=== PATIENT | male | born 1945 | race Caucasian/White ===

== ENCOUNTER 2018-09-18 23:33 | Emergency (ER) | payer MEDICARE, OTHER ==
[~2018-09-18] VITALS: Ht 162.6 cm; Wt 95.3 kg
[2018-09-19 00:38] VITALS: BP 151/89
== END 2018-09-19 00:39 | disposition home or self-care (01) ==
LOC: FSED 23:33
DX: R33.9 Retention of urine, unspecified (principal); N40.1 Benign prostatic hyperplasia with lower urinary tract symptoms; I10 Essential (primary) hypertension
CPT/HCPCS: 51700; 81003; 99283

== ENCOUNTER 2019-04-14 20:30 | Emergency (ER) | payer MEDICARE, OTHER ==
[~2019-04-14] VITALS: Ht 162.6 cm; Wt 99.8 kg
--- OUTSIDE RECORDS SUMMARY | 2019-04-14 20:33 | XMS REPORT | Summary of Care ---
Author Author [facility] Organization [facility] Address Unknown Phone Unavailable Encounter MIGNON Lazar(FIN) [id number] Date(s): 09/24/18 - 09/24/18 [facility] [address] [address] [place] [id number]- Discharge Disposition: Home or Self Care Vital Signs No data available for this section Problem List Condition Effective Dates Status Health Status Informant Benign prostatic Resolved hyperplasia with lower urinary tract symptoms(Confirmed) Diaphragmatic Resolved hernia(Confirmed) Hypercholesterolemia Active (Confirmed) High Resolved cholesterol(Confirme d) Hypertension(Confirm Active ed) High blood Resolved pressure(Confirmed) Prostate Resolved cancer(Confirmed) Mononeuritis Resolved arm(Confirmed) Morbid Active obesity(Confirmed) Nocturia(Confirmed) Resolved Elevated Resolved PSA(Confirmed) Hernia, inguinal, Active right(Confirmed) Allergies, Adverse Reactions, Alerts No Known Medication Allergies Medications No data available for this section Results No data available for this section Immunizations No data available for this section Procedures Procedure Date Related Diagnosis Body Site Status Complex uroflowmetry (eg, calibrated 09/24/18 Completed electronic equipment) Measurement of post-voiding residual urine 09/24/18 Completed and/or bladder capacity by ultrasound, non-imaging Needle biopsy of prostate 10/15/17 Completed Open repair of inguinal hernia 06/27/17 Completed Complex uroflowmetry 09/15/12 Completed Colonoscopy Completed Open repair of inguinal hernia x2 Completed Tonsillectomy Completed Social History Social History Type Response Substance Abuse Use: None. Alcohol Past, Type Liquor. Frequency: 3-5 times per week. Smoking Status Former smoker; Lives with someone who smokes; Exposure to Tobacco Smoke was a smoker; Cigarette Smoking Last 365 Days No; Reg Smoking Cessation Counseling No; Stopped at age: 32; entered on: 10/07/18 Assessment and Plan No data available for this section
--- OUTSIDE RECORDS SUMMARY | 2019-04-14 20:33 | XMS REPORT | Continuity of Care Document ---
Author Author [facility] Interface Address Unknown Phone Unavailable Problems Problem Status Onset Date Classification Date Reported Comments Source UNK Active 06/23/2017 [facility] R10.31 WITH ORAL* Active 06/10/2017 [facility] Benign prostatic hyperplasia with lower urinary tract symptoms Resolved Problem 04/14/2019 [facility] Diaphragmatic hernia Resolved Problem 04/14/2019 [facility] Hypercholesterolemia Active Problem 04/14/2019 [facility] High cholesterol Resolved Problem 04/14/2019 [facility] Hypertension Active Problem 04/14/2019 [facility] High blood pressure Resolved Problem 04/14/2019 [facility] Prostate cancer Resolved Problem 04/14/2019 [facility] Mononeuritis arm Resolved Problem 04/14/2019 [facility] Morbid obesity Active Problem 04/14/2019 [facility] Nocturia Resolved Problem 04/14/2019 [facility] Elevated PSA Resolved Problem 04/14/2019 [facility] Hernia, inguinal, right Active Problem 04/14/2019 [facility] RIGHT LOWER QUADRANT PAIN Active [facility] UNIL INGUINAL HERNIA, W/O OBST OR GANGR, Active [facility] Medications Medication Details Route Status Patient Instructions Ordering Provider Order Date Source Oxycodone Hydrochloride 5 MG Oral Tablet 10 mg, Route: PO, Drug form: TAB, ONCE, Dosing Weight 96.364, kg, PRN Pain Score 7-10, Start date: 06/27/17 9:53:00 CDT Inactive 06/27/2017 [facility] Ondansetron 4 mg, Route: IVP, ONCE, Dosing Weight 96.364, kg, PRN Nausea & Vomiting, Start date: 06/27/17 9:11:00 CDT Inactive 06/27/2017 [facility] Flumazenil 0.2 mg, Route: IVP, PRN, Dosing Weight 96.364, kg, PRN Benzodiazepine Reversal, Initial dose, Start date: 06/27/17 9:11:00 CDT, Duration: 30 day, Stop date: 07/27/17 9:10:00 CDT Inactive 06/27/2017 [facility] Hydromorphone 0.5 mg, Route: IVP, Q5Min, Dosing Weight 96.364, kg, PRN Pain Score 7-10, Start date: 06/27/17 9:11:00 CDT, Duration: 4 doses or times, Stop date: Limited # of times Inactive 06/27/2017 [facility] Naloxone 0.4 mg, Route: IVP, Q2MIN, Dosing Weight 96.364, kg, PRN Narcotic Reversal, Start date: 06/27/17 9:11:00 CDT, Duration: 8 doses or times, Stop date: Limited # of times Inactive 06/27/2017 [facility] Morphine 2 mg, Route: IVP, Q5Min, Dosing Weight 96.364, kg, PRN Pain Score 4-6, Start date: 06/27/17 9:11:00 CDT, Duration: 5 doses or times, Stop date: Limited # of times Inactive 06/27/2017 [facility] Hydralazine 10 mg, Route: IVP, Q20Min, Dosing Weight 96.364, kg, PRN Elevated BP, Start date: 06/27/17 9:11:00 CDT, Duration: 2 doses or times, Stop date: Limited # of times Inactive 06/27/2017 [facility] Labetalol 10 mg, Route: IVP, Q5Min, Dosing Weight 96.364, kg, PRN Elevated BP, Start date: 06/27/17 9:11:00 CDT, Duration: 5 doses or times, Stop date: Limited # of times Inactive 06/27/2017 [facility] tramadol hydrochloride 50 MG Oral Tablet [Ultram] 50 mg=1 tab, PO, Q4H, PRN for pain, X 5 day, # 20 tab, 0 Refill(s) Active 06/27/2017 [facility] ondansetron (ANES) Route: IV, Drug form: INJ, ONCE, Stop date: 06/27/17 9:03:00 CDT Inactive 06/27/2017 [facility] ePHEDrine (ANES) Route: IV, Drug form: INJ, ONCE, Stop date: 06/27/17 8:44:00 CDT Inactive 06/27/2017 [facility] famotidine (ANES) Route: IV, Drug form: INJ, ONCE, Stop date: 06/27/17 8:44:00 CDT Inactive 06/27/2017 [facility] dexamethasone (ANES) Route: IV, Drug form: INJ, ONCE, Stop date: 06/27/17 8:44:00 CDT Inactive 06/27/2017 [facility] fentaNYL (ANES) Route: IV, Drug form: INJ, ONCE, Stop date: 06/27/17 8:39:00 CDT Inactive 06/27/2017 [facility] lidocaine (ANES) Route: IV, Drug form: INJ, ONCE, Stop date: 06/27/17 8:39:00 CDT Inactive 06/27/2017 [facility] propofol (ANES) Route: IV, Drug form: INJ, ONCE, Stop date: 06/27/17 8:39:00 CDT Inactive 06/27/2017 [facility] acetaminophen (ANES) (ANES) Route: IV, Drug form: INJ, Start date: 06/27/17 8:24:00 CDT, Stop date: 06/27/17 9:24:00 CDT Inactive 06/27/2017 [facility] ceFAZolin (ANES) (ANES) Route: IV, Drug form: INJ, Start date: 06/27/17 7:54:00 CDT, Stop date: 06/27/17 8:54:00 CDT Inactive 06/27/2017 [facility] LR 1000 mL INJ (ANES) Route: IV, Total Volume: 1,000, Start date: 06/27/17 7:43:00 CDT, Stop date: 06/27/17 8:43:00 CDT Inactive 06/27/2017 [facility] Calcium Chloride 0.0014 MEQ/ML / Potassium Chloride 0.004 MEQ/ML / Sodium Chloride 0.103 MEQ/ML / Sodium Lactate 0.028 MEQ/ML Injectable Solution 1,000 mL, Rate: 25 ml/hr, Infuse over: 40 hr, Route: IV, Dosing Weight 96.364 kg, Total Volume: 1,000, Start date: 06/27/17 6:57:00 CDT, Duration: 30 day, Stop date: 07/27/17 6:56:00 CDT Inactive 06/27/2017 [facility] Cefazolin 2 gm, 100 mL, Route: IVPB, Drug form: INJ, ONCE, Dosing Weight 97.045, kg, Start date: 06/24/17 10:40:00 CDT, Duration: 1 doses or times, Stop date: 06/24/17 10:40:00 CDT, Surgical Prophylaxis Only; For patients Notes: Same as: Ancef Inactive 06/24/2017 [facility] Omnipaque 300 100 mL, Route: IV, Drug Form: SOLN, ONCE, Start date: 06/13/17 11:47:00 CDT, Stop date: 06/13/17 11:47:00 CDTNotes: (Same as:Omnipaque 300). WASTE: F/P - Black; E - Municipal Trash Bin Inactive 06/13/2017 [facility] Allergies, Adverse Reactions, Alerts Substance Category Reaction Severity Reaction type Status Date Reported Comments Source No Known Medication Allergies Assertion Drug allergy Medical Group Immunizations Immunization Date Given Site Status Last Updated Comments Source Results Order Name Results Value Reference Range Date Interpretation Comments Source HEMATOLOGY Hgb 14.6 g/dL 14.0 - 18.0 06/24/2017 [facility] HEMATOLOGY Hct 43.4 % 42.0 - 54.0 06/24/2017 [facility] CHEM PANEL eGFR 68 mL/min/1.73m2 06/13/2017 Result Comment: The eGFR is calculated using the CKD-EPI formula. In most young, healthy individuals the eGFR will be >90 mL/min/1.73m2. The eGFR declines with age. An eGFR of 60-89 may be normal in some populations, particularly the elderly, for whom the CKD-EPI formula has not been extensively validated. Use of the eGFR is not recommended in the following populations: Individuals with unstable creatinine concentrations, including patients and those with serious co-morbid conditions. Patients with extremes in muscle mass or diet. The data above are obtained from the National Kidney Disease Education Program (NKDEP) which additionally recommends that when the eGFR is used in patients with extremes of body mass index for purposes of drug dosing, the eGFR should be multiplied by the estimated BMI. [facility] CHEM PANEL POC Creatinine 1.1 mg/dL 0.5 - 1.4 06/13/2017 [facility] Pelvis w IV contrast CT Pelvis w IV contrast CT EXAM: CT pelvis HISTORY: Right lower quadrant pain COMPARISON: None TECHNIQUE: Axial images with sagittal and coronal reformats. IV and oral contrast. DLP 398 FINDINGS: 1. Inguinal herniorrhaphy with small fat-containing inguinal hernia on the right extending into the scrotum. Vasectomy clips. 2. Moderate enlargement of the prostate. The bladder is unremarkable. 3. Normal appendix. Several small retroperitoneal lymph nodes are nonspecific. Atherosclerosis aorta. No free fluid. 4. Degenerative disc disease L4-L5 and L5-S1. Pars defects L5 with grade 1 spondylolisthesis. SL 13 06/13/2017 - - Read by: Ozzie Boyd MD Dictated Date/time: 06/13/17 15:34 Electronically Signed by: Ozzie Boyd MD 06/13/17 15:47 FINAL REPORT [facility] Vital Signs Vital Sign Value Date Comments Source Systolic (mm Hg) 110 06/27/2017 [facility] Diastolic (mm Hg) 98 06/27/2017 [facility] Systolic (mm Hg) 133 06/27/2017 [facility] Diastolic (mm Hg) 81 06/27/2017 [facility] Systolic (mm Hg) 135 06/27/2017 [facility] Diastolic (mm Hg) 79 06/27/2017 [facility] Respitory Rate 18 06/27/2017 [facility] Respitory Rate 13 06/27/2017 [facility] Respitory Rate 14 06/27/2017 [facility] Heart Rate 79 06/24/2017 [facility] Temperature Oral (F) 97.5 F 06/24/2017 [facility] Weight 96.364 06/24/2017 [facility] BMI Calculated 35.35 06/24/2017 [facility] Height 165.1 cm 06/24/2017 [facility] Encounters Location Location Details Encounter Type Encounter Number Reason For Visit Attending Provider ADM Date DC Date Status Source Outpatient [id number] JUAN HERNÁNDEZ 06/10/2017 [facility] Outpatient [id number] Juan Hernández 06/13/2017 06/14/2017 [facility] Outpatient [id number] JUAN HERNÁNDEZ 06/27/2017 [facility] Day Surgery [id number] Juan Hernández 06/27/2017 06/27/2017 [facility] Outpatient [id number] JUAN HERNÁNDEZ 07/15/2017 [facility] Outpatient [id number] NURSE VISIT 09/24/2018 [facility] [place] Outpatient [id number] 09/24/2018 09/25/2018 [facility] Out[facility] [id number] PABLO ROSAS 10/07/2018 Active [facility] Outpatient [id number] PABLO ROSAS 12/23/2018 Active [facility] Procedures Procedure Code Date Perfomer Comments Source Measurement of post-voiding residual urine and/or bladder capacity by ultrasound, non-imaging 59215 09/24/2018 [facility] uroflowmetry (eg, calibrated electronic equipment) 58516 09/24/2018 [facility] Needle biopsy of prostate [id number] 10/15/2017 [facility] Repair initial inguinal hernia, age 5 years or older; reducible [id number] 06/27/2017 [facility] Open repair of inguinal hernia [id number] 06/27/2017 [facility] uroflowmetry [id number] 09/15/2012 [facility] Open repair of inguinal hernia x2 [id number] [facility] Colonoscopy [id number] [facility] Open repair of inguinal hernia x2 [id number] [facility] Tonsillectomy [id number] [facility] Colonoscopy [id number] [facility] Tonsillectomy [id number] [facility]
--- OUTSIDE RECORDS SUMMARY | 2019-04-14 20:33 | XMS REPORT | Summary of Care ---
Author Author [facility] Organization [facility] Address Unknown Phone Unavailable Encounter MIGNON Lazar(RITESH) [id number] Date(s): 06/27/17 - 06/27/17 [facility] [address] [place] [address]- Discharge Disposition: Home or Self Care Attending Physician: Juan Hernández MD Referring Physician: Juan Hernández MD Vital Signs 1 2 3 Most recent to oldest [Reference Range]: 165.1 cm (06/24/17 10:40 AM) Height 97.5 DegF (06/24/17 10:42 AM) Temperature Oral [96.4-99.1 DegF] 110/98 mmHg (06/27/17 10:39 AM) 133/81 mmHg (06/27/17 10:00 AM) 135/79 mmHg (06/27/17 9:45 AM) Blood Pressure [90-140/60-90 mmHg] 18 BRMIN (06/27/17 9:45 AM) 13 BRMIN *LOW* (06/27/17 9:30 AM) 14 BRMIN (06/27/17 9:15 AM) Respiratory Rate [14-20 BRMIN] 79 bpm (06/24/17 10:42 AM) Peripheral Pulse Rate [60-100 bpm] 96.364 kg (06/24/17 10:40 AM) Weight 35.35 m2 (06/24/17 10:40 AM) Body Mass Index Problem List Condition Effective Dates Status Health Status Informant Hypercholesterolemia Active (Confirmed) High Resolved cholesterol(Confirme d) Hypertension(Confirm Active ed) High blood Resolved pressure(Confirmed) Morbid Active obesity(Confirmed) Hernia, inguinal, Active right(Confirmed) Allergies, Adverse Reactions, Alerts Substance Reaction Severity Status NKDA Active Medications acetaminophen (ANES) (ANES) Route: IV, Drug form: INJ, Start date: 06/27/17 8:24:00 CDT, Stop date: 06/27/17 9:24:00 CDT Start Date: 06/27/17 Stop Date: 06/27/17 Status: Completed ANES flumazenil 0.2 mg, Route: IVP, PRN, Dosing Weight 96.364, kg, PRN Benzodiazepine Reversal, Initial dose, Start date: 06/27/17 9:11:00 CDT, Duration: 30 day, Stop date: 9:10:00 CDT Start Date: 06/27/17 Stop Date: 06/27/17 Status: Discontinued ANES hydrALAZINE 10 mg, Route: IVP, Q20Min, Dosing Weight 96.364, kg, PRN Elevated BP, Start date : 06/27/17 9:11:00 CDT, Duration: 2 doses or times, Stop date: Limited # of time s Start Date: 06/27/17 Stop Date: 06/27/17 Status: Discontinued ANES HYDROmorphone 0.5 mg, Route: IVP, Q5Min, Dosing Weight 96.364, kg, PRN Pain Score 7-10, Start date: 06/27/17 9:11:00 CDT, Duration: 4 doses or times, Stop date: Limited # of times Start Date: 06/27/17 Stop Date: 06/27/17 Status: Discontinued ANES labetalol 10 mg, Route: IVP, Q5Min, Dosing Weight 96.364, kg, PRN Elevated BP, Start date: 06/27/17 9:11:00 CDT, Duration: 5 doses or times, Stop date: Limited # of times Start Date: 06/27/17 Stop Date: 06/27/17 Status: Discontinued ANES morphine Sulfate 2 mg, Route: IVP, Q5Min, Dosing Weight 96.364, kg, PRN Pain Score 4-6, Start danilo e: 06/27/17 9:11:00 CDT, Duration: 5 doses or times, Stop date: Limited # of chen es Start Date: 06/27/17 Stop Date: 06/27/17 Status: Discontinued ANES naloxone 0.4 mg, Route: IVP, Q2MIN, Dosing Weight 96.364, kg, PRN Narcotic Reversal, Star t date: 06/27/17 9:11:00 CDT, Duration: 8 doses or times, Stop date: Limited # o f times Start Date: 06/27/17 Stop Date: 06/27/17 Status: Discontinued ANES ondansetron 4 mg, Route: IVP, ONCE, Dosing Weight 96.364, kg, PRN Nausea & Vomiting, Start date: 06/27/17 9:11:00 CDT Start Date: 06/27/17 Stop Date: 06/27/17 Status: Discontinued ceFAZolin 2 gm, 100 mL, Route: IVPB, Drug form: INJ, ONCE, Dosing Weight 97.045, kg, Start date: 06/24/17 10:40:00 CDT, Duration: 1 doses or times, Stop date: 06/24/17 10 :40:00 CDT, Surgical Prophylaxis Only; For patients < 120 kg, ABX Indication: Surgical Prop... Notes: Same as: Ancef Start Date: 06/24/17 Stop Date: 06/24/17 Status: Ordered ceFAZolin (ANES) (ANES) Route: IV, Drug form: INJ, Start date: 06/27/17 7:54:00 CDT, Stop date: 06/27/17 8:54:00 CDT Start Date: 06/27/17 Stop Date: 06/27/17 Status: Completed dexamethasone (ANES) Route: IV, Drug form: INJ, ONCE, Stop date: 06/27/17 8:44:00 CDT Start Date: 06/27/17 Stop Date: 06/27/17 Status: Completed ePHEDrine (ANES) Route: IV, Drug form: INJ, ONCE, Stop date: 06/27/17 8:44:00 CDT Start Date: 06/27/17 Stop Date: 06/27/17 Status: Completed famotidine (ANES) Route: IV, Drug form: INJ, ONCE, Stop date: 06/27/17 8:44:00 CDT Start Date: 06/27/17 Stop Date: 06/27/17 Status: Completed fentaNYL (ANES) Route: IV, Drug form: INJ, ONCE, Stop date: 06/27/17 8:39:00 CDT Start Date: 06/27/17 Stop Date: 06/27/17 Status: Completed Lactated Ringers Injection IV 1000 mL 1,000 mL, Rate: 25 ml/hr, Infuse over: 40 hr, Route: IV, Dosing Weight 96.364 kg , Total Volume: 1,000, Start date: 06/27/17 6:57:00 CDT, Duration: 30 day, Stop date: 07/27/17 6:56:00 CDT Start Date: 06/27/17 Stop Date: 06/27/17 Status: Discontinued lidocaine (ANES) Route: IV, Drug form: INJ, ONCE, Stop date: 06/27/17 8:39:00 CDT Start Date: 06/27/17 Stop Date: 06/27/17 Status: Completed LR 1000 mL INJ (ANES) Route: IV, Total Volume: 1,000, Start date: 06/27/17 7:43:00 CDT, Stop date: 8:43:00 CDT Start Date: 06/27/17 Stop Date: 06/27/17 Status: Completed ondansetron (ANES) Route: IV, Drug form: INJ, ONCE, Stop date: 06/27/17 9:03:00 CDT Start Date: 06/27/17 Stop Date: 06/27/17 Status: Completed oxyCODONE 5 mg oral tablet 10 mg, Route: PO, Drug form: TAB, ONCE, Dosing Weight 96.364, kg, PRN Pain Score 7-10, Start date: 06/27/17 9:53:00 CDT Start Date: 06/27/17 Stop Date: 06/27/17 Status: Completed propofol (ANES) Route: IV, Drug form: INJ, ONCE, Stop date: 06/27/17 8:39:00 CDT Start Date: 06/27/17 Stop Date: 06/27/17 Status: Completed Ultram 50 mg oral tablet 50 mg=1 tab, PO, Q4H, PRN for pain, X 5 day, # 20 tab, 0 Refill(s) Start Date: 06/27/17 Stop Date: 07/02/17 Status: Ordered Results HEMATOLOGY Most recent to 1 oldest [Reference Range]: Hgb [14.0-18.0 g/dL] 14.6 g/dL (06/24/17 11:04 AM) Hct [42.0-54.0 %] 43.4 % (06/24/17 11:04 AM) Immunizations No data available for this section Procedures Procedure Date Related Diagnosis Body Site Repair initial inguinal hernia, age 7 years 06/27/17 or older; reducible Colonoscopy Open repair of inguinal hernia x2 Tonsillectomy Social History Social History Type Response Substance Abuse Use: None. Alcohol Past, Type Liquor. Frequency: 3-5 times per week. Smoking Status Former smoker; Stopped at age: 32; Lives with someone who smokes; Exposure to Tobacco Smoke was a smoker; Cigarette Smoking Last 365 Days No; Reg Smoking Cessation Counseling No Assessment and Plan Extracted from: Title: Clinical Document Author: Juan Hernández MD Date: 06/27/17 OP PATIENT NAME: HERMES FERNANDO DATE OF OPERATION/PROCEDURE: 06/27/2017 *_*_* SURGEON: Juan Hernández MD. PREOPERATIVE DIAGNOSES: right inguinal hernia, indirect. POSTOPERATIVE DIAGNOSES: right inguinal hernia, indirect. PROCEDURE: right inguinal hernia repair with mesh. ANESTHESIA: 1. General. 2. 0.5% Marcaine 10 mL local. INDICATIONS FOR PROCEDURE: Hermes Fernando is a 72-year-old male who I evaluated in my office for a reducible right inguinal hernia. Patient was scheduled for repair following informed consent. DESCRIPTION OF PROCEDURE: The patient was transported to the operating room, positioned supine on the operating table. General anesthesia was induced. The patient's entire abdomen was carefully and thoroughly shaved, prepped and draped in the usual sterile fashion. Following successful completion of timeout procedure as per operating room protocol, a right inguinal incision was then created with a #15 scalpel. Subcutaneous tissue incised with electrocautery. Fascia incised with Gilmore scissors to gain access to the cord structures, which were encircled with Aung drain. Ilioinguinal nerve was identified and ligated in the usual manner. Indirect inguinal hernia sac was identified. It was carefully dissected away from the cord structures with blunt dissection with DeBakey forceps. High ligation of the sac was performed in the usual manner with 3-0 silk suture. Medium Prolene hernia system was selected, presoaked in antibiotic solution. Underlay patch inserted into the preperitoneal space while the overlay was incised laterally to accommodate the cord structures loosely, secured to the level of pubic tubercle arch of the transversus abdominis, as well as shelving edge of the inguinal ligament with interrupted 2-0 Prolene sutures. Operative area was irrigated with sterile saline. No evidence of bleeding. Hemostasis was adequate. Fascia was reapproximated with a running suture of 2-0 Vicryl to recreate the external ring. Aung drain was removed. Subcutaneous tissue and Nahum's fascia closed with a running suture of 3-0 Vicryl, skin closed with a running subcuticular suture of 4-0 Vicryl. Dermabond was applied. Patient was reversed from general anesthesia, extubated and returned to the postanesthesia care unit in stable condition. ESTIMATED BLOOD LOSS: Less than 10 mL COMPLICATIONS: None. _*_*_ Dictated by: JUAN HERNÁNDEZ MD Extracted from: Title: Clinical Document Author: Juan Hernández MD Date: 06/27/17 Chief Complaint "I have some pain in my right groin" History of Present Illness HERMES FERNANDO is a 72-year-old male who describes undergoing right inguinal hernia repair with mesh in the . He is not sure whether this was a mesh repair or not. He does not recall who the surgeon was or aware of the surgery was performed. In the past 2 or 3 months the patient has noticed some intermittent right inguinal pain but he has not noticed a bulge or recurrent hernia. He was concerned since he had a hernia in the past. He denies associated nausea or vomiting. He denies dysuria. He was seen by his urologist and there was a concern that this could represent a hernia and he was referred to me for further evaluation. He describes no exacerbating or alleviating factors otherwise. He has not taking any medications to treat his symptoms. He has no other complaints. Review of Systems Constitutional Symptoms: neg fever, neg weight loss, neg weight gain Cardiovascular: neg chest pain, neg SOB, neg palpitations Respiratory: neg SOB, neg wheezing, neg dyspnea Gastrointestinal: neg hematemesis, neg hematochezia, neg abdominal pain Genitourinary: neg frequency, neg urgency, neg dysuria, neg inguinal hernia, pos inguinal pain Musculoskeletal: neg joint pain, neg arthritis, neg muscle aches Integumentary (skin and/or breast): neg rash, neg suspicious lesions, neg discoloration Neurological: neg blurred vision, neg double vision, neg headache Psychiatric: neg anxiety, neg depression, neg insomnia Endocrine: neg polyuria, neg polydipsia, neg cold or heat intolerance Hematologic/Lymphatic: neg bleeding, neg bruising, neg edema Physical Exam Vitals & Measurements HT: 165.1 cm HT Collection: Stated WT: 97.045 kg WT Collection: Measured BP: 165/98 HR(Peripheral): 73 bpm T(O): 98.0 DegF BP Site: Left arm BP Collection: Electronic BP Collection Position: Sitting BP Cuff Size: large Activity When BP Taken: Quiet BMI: 35.6 m2 BSA: 2.1096 m2 HEENT: normocephalic, atraumatic, pupils equal and reactive, oropharynx clear, no erythema or exudates NECK: supple, non tender, no cervical adenopathy, no thyromegaly or nodules CHEST/BREAST: deferred HEART: regular, no murmur LUNG: clear bilaterally ABDOMEN: soft, obese, non tender, non distended, no palpable mass, no guarding, no peritoneal signs, neg Stratton's sign, no hernia, normal bowel sounds GENITAL: exam is somewhat limited secondary to patient's body habitus and obesity. Right inguinal exam does not demonstrate palpable or well-defined hernia or weakness. There is no palpable hernia at external ring with invagination of the right hemiscrotum. There is mild local tenderness at the external ring. Testicular exam is normal without nodularity. No left inguinal hernia palpated. RECTAL: deferred EXTREMITIES: no clubbing, cyanosis, or edema PULSES: 2+ and equal bilaterally SKIN: no lesions or nodules NEURO: grossly non focal, sensory motor intact PSYCH: no anxiety of depression, normal affect Assessment/Plan 1. Right inguinal pain exam limited secondary to body habitus. There is no evidence of definable or palpable inguinal hernia at this time on today's examination. Recommended CT scan imaging of the pelvis with IV contrast for further evaluation. Ordered: [id number] Office/Outpatient Visit New, 06/10/17 14:02:00 CDT, 24 hr Body mass index (BMI) 35.0-35.9, adult BMI 35.6 Counseled patient on weight reduction, nutrition, exercise.
== END 2019-04-14 21:21 | disposition home or self-care (01) ==
LOC: FSED 20:30
DX: N40.1 Benign prostatic hyperplasia with lower urinary tract symptoms (principal); R33.8 Other retention of urine; I10 Essential (primary) hypertension; N40.0 Benign prostatic hyperplasia without lower urinary tract symptoms
CPT/HCPCS: 51700; 80048; 81003; 85025; 99283

== ENCOUNTER 2019-12-22 07:41 | Emergency (ER) | payer MEDICARE, OTHER ==
[~2019-12-22] VITALS: Ht 162.6 cm; Wt 97.5 kg
--- NOTE | 2019-12-22 08:11 | NUR ---
PLACED SKINNER LEG BAG ON PT, SKINNER IS DRAINING, PT VOICES NO COMPLAINTS AT THIS TIME.
== END 2019-12-22 08:28 | disposition home or self-care (01) ==
LOC: FSED 07:41
DX: R33.9 Retention of urine, unspecified (principal); N40.1 Benign prostatic hyperplasia with lower urinary tract symptoms
CPT/HCPCS: 51700; 51702; 99283

== ENCOUNTER 2019-12-31 06:13 | Emergency (ER) | payer MEDICARE, OTHER ==
[~2019-12-31] VITALS: Ht 162.6 cm; Wt 97.5 kg
--- NOTE | 2019-12-31 07:20 | NUR ---
leg bag applied to pt's lopes that was inserted by previous shift RN. Pt is tolerating the lopes and has had 400ml of cloudy sediment yellow urine in the lopes. Pt is now pain free and verbalizes care of leg bag to RN and states that he will call his urologist to see if he can move up his appt from Friday to sooner d/t this retention problem that has arisen.
[2019-12-31 07:28] VITALS: BP 160/86
== END 2019-12-31 07:28 | disposition home or self-care (01) ==
LOC: FSED 06:13
DX: R33.9 Retention of urine, unspecified (principal); N40.1 Benign prostatic hyperplasia with lower urinary tract symptoms; I10 Essential (primary) hypertension; E78.5 Hyperlipidemia, unspecified
CPT/HCPCS: 81003; 99282

== ENCOUNTER 2020-01-25 04:22 | Emergency (ER) | payer MEDICARE, OTHER ==
[~2020-01-25] VITALS: Ht 162.6 cm; Wt 99.8 kg
--- NOTE | 2020-01-25 04:57 | NUR ---
SKINENR CATH INSERTED USING ASEPTIC TECHNIQUE. PT TOLERATED WELL. PT STATES THIS IS HIS 3RD TIME TO HAVE TO HAVE A SKINNER.
--- NOTE | 2020-01-25 04:59 | NUR ---
700CC CLEAR YELLOW URINE INTO GRAVITY DRAINING BAG ON BEDSIDE. PT STATES FEELING RELIEF NOW
[2020-01-25 05:16] VITALS: BP 168/92
== END 2020-01-25 05:15 | disposition home or self-care (01) ==
LOC: FSED 04:22
DX: R33.9 Retention of urine, unspecified (principal); N40.1 Benign prostatic hyperplasia with lower urinary tract symptoms
CPT/HCPCS: 51700; 99282

== ENCOUNTER 2020-03-31 06:26 | Emergency (ER) | payer MEDICARE, OTHER ==
[~2020-03-31] VITALS: Ht 162.6 cm; Wt 99.8 kg
--- OUTSIDE RECORDS SUMMARY | 2020-03-31 06:29 | XMS REPORT | Summary of Care ---
Author Author [facility] Organization [facility] Address Unknown Phone Unavailable Encounter MIGNON Lazar(RITESH) [id number] Date(s): 06/08/19 - 06/08/19 [facility] [place] [address] [place] [id number]- Discharge Disposition: Home or Self Care Attending Physician: Jax Pina MD Vital Signs No data available for this section Problem List Condition Effective Dates Status Health Status Informan t Benign prostatic Resolved hyperplasia with lower urinary tract symptoms(Confirmed) Diaphragmatic Resolved hernia(Confirmed) Hypercholesterolemia Active (Confirmed) High Resolved cholesterol(Confirme d) Hypertension(Confirm Active ed) High blood Resolved pressure(Confirmed) Prostate Resolved cancer(Confirmed) Mononeuritis Resolved arm(Confirmed) Morbid Active obesity(Confirmed) Nocturia(Confirmed) Resolved Elevated Resolved PSA(Confirmed) Hernia, inguinal, Active right(Confirmed) Allergies, Adverse Reactions, Alerts No Known Medication Allergies Medications amikacin 500 mg, Route: IM, Drug form: INJ, ONCE, Dosing Weight 97.727, kg, Start date: 0 06/08/19 17:40:00 CDT, Stop date: 06/08/19 17:40:00 CDT Start Date: 06/08/19 Stop Date: 06/08/19 Status: Ordered Results No data available for this section Immunizations No data available for this section Procedures Procedure Date Related Diagnosis Body Site Status Biopsy, prostate; needle or punch, single or 06/08/19 Completed multiple, any approach Needle biopsy of prostate 10/15/17 Completed Open repair of inguinal hernia 06/27/17 Complet ed Complex uroflowmetry 09/15/12 Completed Colonoscopy Completed Open repair of inguinal hernia x2 Completed Tonsillectomy Completed Social History Social History Type Response Substance Abuse Use: None. Alcohol Past, Type Liquor. Frequen cy: 3-5 times per week. Smoking Status Former smoker; Lives with s omeone who smokes; Exposure to Tobacco Smoke was a smoker; Cigarette Smoking Last 365 Da ys No; Reg Smoking Cessation Counseling No; Stopped at age: 32; entered on: 06/08/19 Assessment and Plan No data available for this section
--- OUTSIDE RECORDS SUMMARY | 2020-03-31 06:29 | XMS REPORT | Continuity of Care Document ---
Author Author [email or web address] Organization [email or web address] Address Unknown Phone Unavailable Care Team Providers Care Report Specialist Name Role Phone [employer]Ment[employer] Information Epom Unavailable Un available Problems Problem Status Onset Date Classification Date Reported Comments Source UNK Active 0 06/23/2017 [facility] R10.31 WITH ORAL* Active 06/10/2017 [facility] Benign prostatic hyperplasia (disorder) Resolved Problem 03/01/2020 [facility] Diaphragmatic hernia (disorder) Resolved Problem [facility] Hypercholesterolemia (disorder) Resolved Problem [facility] [place] Hypertensive disorder, systemic arterial (disorder) Resolved Problem 03/01/2020 [facility] Malignant tumor of prostate (disorder) Resolved Problem 03/01/2020 [facility] Mononeuropathy of upper limb (disorder) Resolved Problem 03/01/2020 [facility] Morbid obesity (disorder) Acti ve Problem [facility] [place] Nocturia (finding) Resolved Problem 03/01/2020 [facility] Raised prostate specific antigen (finding) Resolved Problem 03/01/2020 [facility] Right inguinal hernia (disorder) Active Problem [facility] [place] RIGHT LOWER QUADRANT PAIN Acti ve [facility] UNIL INGUINAL HERNIA, W/O OBST OR GANGR, Active [facility] Medications Medication Details Route Status Patient Instructions Ordering Provider Order Date Source Ciprofloxacin 500 MG Oral Tablet [Cipro] 500 mg = 1 tab, PO, Q12H, start taking on 12/17/2019, X 5 day, # 10 tab, 0 Refill(s), Pharmacy: [facility] #[id number] Active 12/13/2019 [facility] Ciprofloxacin 500 MG Oral Tablet [Cipro] 500 mg = 1 tab, PO, Q12H, begin three days prior to procedure, X 5 day, # 10 tab, 1 Refill(s), Pharmacy: [facility] #[id number] Active 10/06/2019 [facility] Amikacin 500 mg, Route: IM, Dr raine form: INJ, ONCE, Dosing Weight 97.727, kg, Start date: 06/08/19 17:40:00 CDT, Stop date: 06/08/19 17:40:00 CDT Inactive 06/08/2019 [facility] Tamsulosin hydrochloride 0.4 MG Oral Capsule [Flomax] 0.8 mg = 2 cap, PO, Daily, # 60 cap, 11 Refill(s), Pharmacy: [id number] Active 04/21/2019 [facility] Ciprofloxacin 500 MG Oral Tablet [Cipro] 500 mg = 1 tab, PO, Q12H, begin three days prior to procedure, X 5 day, # 10 tab, 1 Refill(s), Pharmacy: [facility] [id number] Active 04/21/2019 [facility] Lisinopril PO, Daily, 0 Refill (s) Active 04/21/2019 [facility] Tamsulosin hydrochloride 0.4 MG Oral Capsule [Flomax] 0.4 mg = 1 cap, PO, Daily, # 90 cap, 5 Refill(s), Pharmacy: [facility] [id number] Active 10/07/2018 [facility] silodosin 8 MG Oral Capsule [Rapaflo] 8 mg = 1 cap, PO, # 30 cap, 12 Refill(s) Active 09/24/2018 [facility] Sulfamethoxazole 800 MG / Trimethoprim 1 60 MG Oral Tablet [Bactrim] 1 tab, PO, BID, # 28 tab, 0 Refill(s) Active 09/24/2018 [facility] Ciprofloxacin 500 MG Oral Tablet [Cipro] 500 mg = 1 tab, PO, # 10 tab, 0 Refill(s) Active 09/24/2018 [facility] Oxycodone Hydrochloride 5 MG Oral Tablet 10 mg, Route: PO, Drug form: TAB, ONCE, Dosing Weight 96.364, kg, PRN Pain Score 7-10, Start date: 06/27/17 9:53:00 CDT Inactive 06/27/2017 [facility] Ondansetron 4 mg, Route: IVP, ONCE, Dosing Weight 96.364, kg, PRN Nausea & Vomiting, Start date: 06/27/17 9:11:00 CDT Inactive 06/27/2017 [facility] Flumazenil 0.2 mg, Route: IVP, PRN, Dosing Weight 96.364, kg, PRN Benzodiazepine Reversal, Initial dose, Start date: 06/27/17 9:11:00 CDT, Duration: 30 day, Stop date: 07/27/17 9:10:00 CDT Inactive 06/27/2017 [facility] Hydromorphone 0.5 mg, Route: I [employer]RATION INSTRU[employer], Q5Min, Dosing Weight 96.364, kg, PRN Pain Score 7-10, Start date: 06/27/17 9:11:00 CDT, Duration: 4 doses or times, Stop date: Limited # of times Inactive 06/27/2017 [facility] Naloxone 0.4 mg, Route: IVP, Q 2MIN, Dosing Weight 96.364, kg, PRN Narcotic Reversal, Start date: 06/27/17 9:11:00 CDT, Duration: 8 doses or times, Stop date: Limited # of times Inactive 06/27/2017 [facility] Morphine 2 mg, Route: IVP, Q5M in, Dosing Weight 96.364, kg, PRN Pain Score 4-6, Start date: 06/27/17 9:11:00 CDT, Duration: 5 doses or times, Stop date: Limited # of times Inactive 06/27/2017 [facility] Hydralazine 10 mg, Route: IVP, Q20Min, Dosing Weight 96.364, kg, PRN Elevated BP, Start date: 06/27/17 9:11:00 CDT, Duration: 2 doses or times, Stop date: Limited # of times Inactive 06/27/2017 [facility] Labetalol 10 mg, Route: IVP, Q 5Min, Dosing Weight 96.364, kg, PRN Elevated BP, Start date: 06/27/17 9:11:00 CDT, Duration: 5 doses or times, Stop date: Limited # of times Inactive 06/27/2017 [facility] tramadol hydrochloride 50 MG Oral Tablet [Ultram] 50 mg = 1 tab, PO, Q4H, PRN for pain, X 5 day, # 20 tab, 0 Refill(s) Active 06/27/2017 [facility] ondansetron (ANES) Route: IV, Drug form: INJ, ONCE, Stop date: 06/27/17 9:03:00 CDT Inactive 06/27/2017 [facility] ePHEDrine (ANES) Route: IV, Dr ug form: INJ, ONCE, Stop date: 06/27/17 8:44:00 CDT Inactive 06/27/2017 [facility] famotidine (ANES) Route: IV, D rug form: INJ, ONCE, Stop date: 06/27/17 8:44:00 CDT Inactive 06/27/2017 [facility] dexamethasone (ANES) Route: IV , Drug form: INJ, ONCE, Stop date: 06/27/17 8:44:00 CDT Inactive 06/27/2017 [facility] fentaNYL (ANES) Route: IV, David g form: INJ, ONCE, Stop date: 06/27/17 8:39:00 CDT Inactive 06/27/2017 [facility] lidocaine (ANES) Route: IV, Dr ug form: INJ, ONCE, Stop date: 06/27/17 8:39:00 CDT Inactive 06/27/2017 [facility] propofol (ANES) Route: IV, David g form: INJ, ONCE, Stop date: 06/27/17 8:39:00 CDT Inactive 06/27/2017 [facility] acetaminophen (ANES) (ANES) [place]: IV, Drug form: INJ, Start date: 06/27/17 8:24:00 CDT, Stop date: 06/27/17 9:24:00 CDT Inactive 06/27/2017 [facility] ceFAZolin (ANES) (ANES) Route: IV, Drug form: INJ, Start date: 06/27/17 7:54:00 CDT, Stop date: 06/27/17 8:54:00 CDT Inactive 06/27/2017 [facility] LR 1000 mL INJ (ANES) Route: I V, Total Volume: 1,000, Start date: 06/27/17 7:43:00 CDT, Stop date: 06/27/17 8:43:00 CDT Inactive 06/27/2017 [facility] Calcium Chloride 0.0014 MEQ/ML / Potassi um Chloride 0.004 MEQ/ML / Sodium Chloride 0.103 MEQ/ML / Sodium Lactate 0.028 MEQ/ML Injectable Solution 1,000 mL, Rate: 25 ml/hr, Infuse over: 4 0 hr, Route: IV, Dosing Weight 96.364 kg, Total Volume: 1,000, Start date: 06/27/17 6:57:00 CDT, Duration: 30 day, Stop date: 07/27/17 6:56:00 CDT Inactive 06/27/2017 [facility] Cefazolin Notes: Same as: Ancef Inactive 06/24/2017 [facility] Omnipaque 300 Notes: (Same as: Omnipaque 300). WASTE: F/P - Black; E - Municipal Trash Bin Inactive 06/13/2017 [facility] Allergies, Adverse Reactions, Alerts Substance Category Reaction Severity Reaction type Status Date Reported Comments Source No Known Medication Allergies Assertion Drug aller gy [facility] Immunizations No Data Provided for This Section Results Order Name Results Value Reference Range Date Interpretation Comments Source HEMATOLOGY Hgb 14.6 14.0 - 18.0 06/24/2017 [facility] HEMATOLOGY Hct 43.4 42.0 - 54.0 06/24/2017 [facility] CHEM PANEL eGFR 68 06/13/2017 Result Comment: The eGFR is calculated [...] should be multiplied by the estimated BMI. [facility] CHEM PANEL POC Creatinine 1.1 0.5 - 1.4 06/13/2017 [facility] Pathology Reports No Data Provided for This Section Diagnostic Reports Report Value Date Source Pelvis w IV contrast CT EXAM: CT pelvis HISTORY: Right lower quadrant pain COMPARISON: None TECHNIQUE: Axial images with sagittal and coronal reformats. IV and oral contrast. DLP 398 FINDINGS: 1. Inguinal herniorrhaphy with small fat -containing inguinal hernia on the right extending into the scrotum. Vasectomy clips. 2. Moderate enlargement of the prostate. The bladder is unremarkable. 3. Normal appendix. Several small retro peritoneal lymph nodes are nonspecific. Atherosclerosis aorta. No free fluid. 4. 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 Pars defects L5 with grade 1 spondylolisthesis. SL 13 06/13/2017 [facility] Consultation Notes No Data Provided for This Section Discharge Summaries No Data Provided for This Section History and Physicals No Data Provided for This Section Vital Signs Vital Sign Value Date Comments Source Height 165.1 cm 10/05/2019 [facility] Weight 97.727 10/05/2019 [facility] BMI Calculated 35.85 10/05/2019 [facility] Height 165.1 cm 08/10/2019 [facility] Weight 97.727 08/10/2019 [facility] BMI Calculated 35.85 08/10/2019 [facility] Height 165.1 cm 06/30/2019 [facility] Weight 97.727 06/30/2019 [facility] BMI Calculated 35.85 06/30/2019 [facility] Weight 97.727 04/21/2019 [facility] Height 165.1 cm 04/21/2019 [facility] BMI Calculated 35.85 04/21/2019 [facility] Height 165.1 cm 10/07/2018 [facility] BMI Calculated 35.85 10/07/2018 [facility] Weight 97.727 10/07/2018 [facility] Heart Rate 76 10/07/2018 [facility] Systolic (mm Hg) 162 10/07/2018 [facility] Diastolic (mm Hg) 101 10/07/2018 [facility] Systolic (mm Hg) 110 06/27/2017 [facility] Diastolic (mm Hg) 98 06/27/2017 [facility] Systolic (mm Hg) 133 06/27/2017 [facility] Diastolic (mm Hg) 81 06/27/2017 [facility] Systolic (mm Hg) 135 06/27/2017 [facility] Diastolic (mm Hg) 79 06/27/2017 [facility] Respitory Rate 18 06/27/2017 [facility] Respitory Rate 13 06/27/2017 [facility] Respitory Rate 14 06/27/2017 [facility] Heart Rate 79 06/24/2017 [facility] Temperature Oral (F) 97.5 F 06/24/2017 [facility] Weight 96.364 06/24/2017 [facility] BMI Calculated 35.35 06/24/2017 [facility] Height 165.1 cm 06/24/2017 [facility] Encounters Location Location Details Encounter Type Encounter Number Reason For Visit Attending Provider ADM Date DC Date Status Source Outpatient [id number] JUAN HERNÁNDEZ 06/10/2017 Active [facility] Outpatient [id number] Juan Hernández 06/13/2017 06/14/2017 [facility] Outpatient [id number] JUAN HERNÁNDEZ 06/27/2017 [facility] Day Surgery [id number] Juan Hernández 06/27/2017 06/27/2017 [facility] Outpatient [id number] JUAN HERNÁNDEZ 07/15/2017 Active [facility] Outpatient [id number] NURSE VISIT 09/24/2018 [facility] Outpatient [id number] 09/24/2018 09/25/2018 [facility] Outside Medical Records [id number] 09/24/2009/26/2018 [facility] Outpatient [id number] PABLO ALISON 10/07/2018 [facility] Outpatient [id number] Pablo Alison 10/07/2018 10/08/2018 [facility] Outpatient [id number] PABLO ALISON 12/23/2018 Active [facility] Outpatient [id number] - VISIT, [place] 04/15/2019 [facility] Outpatient [id number] 04/15/2019 04/16/2019 [facility] Outpatient [id number] Pablo Alison 04/21/2019 [facility] Outpatient [id number] Pablo Alison 04/21/2019 04/22/2019 [facility] Outpatient [id number] MED_ASST VISIT 04/22/2019 [facility] Outpatient [id number] Pablo Alison 04/22/2019 04/23/2019 [facility] Outpatient [id number] Pablo Alison 06/08/2019 Active [facility] Outpatient [id number] Pablo Alison 06/08/2019 [facility] Outpatient [id number] Pablo Alison 06/08/2019 06/09/2019 [facility] Ambulatory Pre-Reg [id number] Pablo Alison 06/08/2019 06/08/2019 [facility] Outpatient [id number] Pablo Alison 06/30/2019 Active [facility] Outpatient [id number] Pablo Alison 06/30/2019 07/01/2019 [facility] Outpatient [id number] Pablo Alison 08/10/2019 Active [facility] Outpatient [id number] Pablo Alison 08/10/2019 08/11/2019 [facility] Outpatient [id number] Pablo Alison 09/08/2019 Active [facility] [id number] Pablo Alison 09/08/2019 09/08/2019 [facility] Outpatient [id number] Pablo Alison 10/05/2019 Active [facility] Outpatient [id number] Pablo Alison 10/05/2019 10/06/2019 [facility] Outpatient [id number] NURSE VISIT 12/13/2019 Active [facility] Outpatient [id number] Pablo Alison 12/13/2019 12/14/2019 [facility] Ambulatory Pre-Reg [id number] NURSE VISIT 12/13/2019 12/13/2019 [facility] Outpatient [id number] MED_ASST VISIT 12/27/2019 Active [facility] Outpatient [id number] Pablo Alison 12/27/2019 12/28/2019 [facility] Outpatient [id number] Simeon Padgett 01/17/2020 Active [facility] Outpatient [id number] Simeon Faustint 01/17/2020 2020 [facility] Outpatient [id number] MED_ASST VISIT 2020 Active [facility] Outpatient [id number] Pablo Alison 2020 01/19/2020 [facility] Outpatient [id number] MED_ASST VISIT 02/04/2020 Active [facility] Outpatient [id number] MED_ASST VISIT 02/04/2020 02/05/2020 [facility] Outpatient [id number] Pablo Alison 02/09/2020 [facility] Ambulatory Pre-Reg [id number] Pablo Alison 02/15/2020 02/15/2020 [facility] Outpatient [id number] MED_ASST VISIT 02/28/2020 [facility] Outpatient [id number] Pablo Alison 02/28/2020 02/29/2020 [facility] Outpatient [id number] MED_ASST VISIT 03/06/2020 Active [facility] Outpatient [id number] MED_ASST VISIT 03/20/2020 Active [facility] Outpatient [id number] MED_ASST VISIT 03/27/2020 [facility] Outpatient [id number] Pablo Alison 03/29/2020 [facility] Outpatient [id number] Pablo Alison 04/12/2020 [facility] Outpatient [id number] MED_ASST VISIT 04/12/2020 [facility] Outpatient [id number] Simeon Foxtamra 05/31/2020 [facility] Procedures Procedure Code Date Perfomer Comments Source Insertion of temporary indwelling bladde r catheter; simple (eg, Márquez) 56074 02/28/2020 [facility] Measurement of post-voiding residual uri ne and/or bladder capacity by ultrasound, non-imaging 85741 2020 [facility] Complex uroflowmetry (eg, calibrated angel ctronic equipment) 30895 2020 [facility] Bladder irrigation, simple, lavage and/or instillation 73381 2020 [facility] Biopsy, prostate; needle or punch, singl e or multiple, any approach [id number] 06/08/2019 [facility] Needle biopsy of prostate 2362 37358 10/15/2017 [facility] Repair initial inguinal hernia, age 5 ye ars or older; reducible 69334 06/27/2017 [facility] Open repair of inguinal hernia [id number] 06/27/2017 [facility] uroflowmetry [id number] 09/15/2012 [facility] Colonoscopy [id number] [facility] Open repair of inguinal hernia x2 [id number] [facility] Tonsillectomy [id number] [facility] Assessment and Plan Assessment and Plan Date Source Extracted from:Title: Clinical Document Author: Juan Hernández MD Date: [...] the cord structures, which were encircled with [place] drain. Ilioinguinal nerve was identified and ligated [...] inserted into the preperitoneal space while the overl ay was incised laterally to accommodate the cord [...] 2-0 Vicryl to recreate the external ring. [place] drain was removed. Subcutaneous tissue and Nahum's fascia closed with a running suture of 3-0 Vicryl, skin closed with a running subcuticular suture of 4-0 Vicryl. Dermabond was applied. Patient was reversed from general anesthesia, extubated and returned to the postanesthesia care unit in stable condition. ESTIMATED BLOOD LOSS: Less than 10 mL COMPLICATIONS: None. _*_*_ Dictated by: JUAN HERNÁNDEZ MD Extracted from:Title: Clinical Document Author: Juan Hernández MD Date: [...] 3 months the patient has noticed some in termittent right inguinal pain but he has not [...] neg bruising, neg edema Physical Exam Vitals and Measurements HT: 165.1 cm HT Collection: Stated [...] with IV contrast for further evaluation. Ordered: [id number] Office/Outpatient Visit New, 06/10/17 14:02:00 CDT, 24 hr Body mass index (BMI) 35.0-35.9, adult BMI 35.6 Counseled patient on weight reduction, nutrition, exercise. 06/27/2017 [facility] Plan of Care No Data Provided for This Section Social History Social History Date Source Social History TypeResponse Alcohol Past, Type Liquor. Frequency: 3-5 times per week. Substance Abuse Use: None. Smoking Status Former smoker; Lives with someone who smokes; Exposure to Tobacco Smoke was a smoker; Cigarette Smoking Last 365 Days No; Reg Smoking Cessation Counseling No; Stopped at age: 32; entered on: 01/17/20 06/24/2017 [facility] Social History TypeResponse Substance Abuse Use: None. Alcohol Past, Type Liquor. Frequency: 3-5 times per week. Smoking Status Former smoker; Stopped at age: 32; Lives with someone who smokes; Exposure to Tobacco Smoke was a smoker; Cigarette Smoking Last 365 Days No; Reg Smoking Cessation Counseling No 06/10/2017 [facility] Family History No Data Provided for This Section Advance Directives No Data Provided for This Section Functional Status No Data Provided for This Section
--- OUTSIDE RECORDS SUMMARY | 2020-03-31 06:29 | XMS REPORT | Summary of Care ---
Author Author [facility] Organization [facility] Address Unknown Phone Unavailable Encounter MIGNON Lazar(FIN) [id number] Date(s): 06/08/19 - 06/08/19 [facility] [place] [address] [facility] [address] [place] [id number]- Attending Physician: Jax Pina MD Vital Signs [...] Procedure Date Related Diagnosis Body Site Status Needle biopsy of prostate 10/15/17 Completed Open [...]
--- OUTSIDE RECORDS SUMMARY | 2020-03-31 06:30 | XMS REPORT | Summary of Care ---
Author Author [facility] ton Organization [facility] Address Unknown Phone Unavailable Encounter MIGNON Lazar(FIN) [id number] Date(s): 01/17/20 - 01/17/20 [facility] [place] [id number] [place] [address]- Discharge Disposition: Home or Self Care Attending Physician: Simeon Padgett MD Vital Signs No data available for this section Problem List Condition Effective Dates Status Health Status Informan t Benign prostatic Resolved hyperplasia with lower urinary tract symptoms(Confirmed) Diaphragmatic Resolved hernia(Confirmed) High Resolved cholesterol(Confirme d) Hypercholesterolemia Active (Confirmed) High blood Resolved pressure(Confirmed) Hypertension(Confirm Active ed) Prostate Resolved cancer(Confirmed) Mononeuritis Resolved arm(Confirmed) Morbid Active obesity(Confirmed) Nocturia(Confirmed) Resolved Elevated Resolved PSA(Confirmed) Hernia, inguinal, Active right(Confirmed) Allergies, Adverse Reactions, Alerts No Known Medication Allergies Medications No Known Medications Results No data available for this section Immunizations No data available for this section Procedures Procedure Date Related Diagnosis Body Site Status Needle biopsy of prostate 10/15/17 Completed Open repair of inguinal hernia 06/27/17 Complet ed Complex uroflowmetry 09/15/12 Completed Colonoscopy Completed Open repair of inguinal hernia x2 Completed Tonsillectomy Completed Social History Social History Type Response Alcohol Past, Type Liquor. Frequen cy: 3-5 times per week. Substance Abuse Use: None. Smoking Status Former smoker; Lives with s omeone who smokes; Exposure to Tobacco Smoke was a smoker; Cigarette Smoking Last 365 Da ys No; Reg Smoking Cessation Counseling No; Stopped at age: 32; entered on: 01/17/20 Assessment and Plan No data available for this section
--- OUTSIDE RECORDS SUMMARY | 2020-03-31 06:30 | XMS REPORT ---
Author Author [facility] t Organization [facility] Address [address] [place] [address] Phone Unavailable Care Team Providers Care Investor Relations Specialist Name Role Phone LISA FUENTES MD PCP Sergo Pina Attphys VISIT, [facility] MED_ASST Attphys Unavailable To Padgett Attphys VISIT, [facility] NURSE Attphys Unavailable Werner Partida Attphys Payers Payer Name Policy Type Policy Number Effective Date Expiration Date Sergo michael Nell Ppo [id number] 2019 00:00:00 [facility] Medicare A & B [id number] 2012 00:00:00 [facility] Cigna Ppo [id number] 2019 00:00:00 [facility] Medicare A & B [id number] 2012 00:00:00 [facility] Cig Ppo [id number] 2017 00:00:00 [facility] Medicare A & B [id number] [facility] Cigna Ppo [id number] 2017 00:00:00 2018 00:0 0:00 [facility] Medicare A & B [id number] 2012 00:00:00 [facility] Problems Condition Name Condition Details Condition Category Status Onset Date Resolution Date Last Treatment Date Treating Clinician Comments Source GIOVANA DICKINSONK Active 06/23/2017 [facility] Diagnosis Active 2017-06-23 00:00:00 2017-06-27 05:13:00 M [facility] R10.31 WITH ORAL* R10. 31 WITH ORAL* Active 06/10/2017 [facility] Diagnosis Active 2017-06-10 00:00:00 2017-06-13 09:59:00 [facility] Benign prostatic hyperplasia (disorder) Benign prostatic hyperplasia (disorder) Resolved Problem 03/01/2020 Medical Group Problem Resolved 2020-03-01 22:35:48 [facility] dical Group Diaphragmatic hernia (disorder) Diaphragmatic hernia (disorder) Resolved Problem 03/01/2020 Medical Group Problem Resolved 2020-03-01 22:35:48 Medical Group Hypercholesterolemia (disorder) Hypercholesterolemia (disorder) [facility]2020 [facility] 2020-03-01 22:35:48 [facility] dical Group, [facility] Hypertensive disorder, systemic arterial (disorder) Hypertensive disorder, systemic arterial (disorder) Resolved Problem 03/01/2020 Medical Group,[facility] Problem Resolved 2020-03-01 22:35:48 Medical Group, [facility] Malignant tumor of prostate (disorder) Malignant tumor of prostate (disorder) Resolved Problem 03/01/2020 Medical Group Problem Resolved 2020-03-01 22:35:48 [facility] dical Group 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) Resolved Problem 03/01/2020 Medical Group Problem Resolved 2020-03-01 22:35:48 Me dical Group Morbid obesity (disorder) Morb id obesity (disorder) Active Problem 03/01/2020 Medical Group,[facility] Problem Active 2020-03-01 22:35:48 Medical [facility], [facility] Nocturia (finding) Noct uria (finding) Resolved Problem 03/01/2020 Medical Group Problem Resolved 2020-03-01 22:35:48 Medical Group Raised prostate specific antigen (finding) Raised prostate specific antigen (finding) Resolved Problem 03/01/2020 Medical Group Problem Resolved 2020-03-01 22:35:48 Medical Group Right inguinal hernia (disorder) Right inguinal hernia (disorder) Active Problem 03/01/2020 Medical Group,[facility] Problem Active 2020-03-01 22:35:48 Medic al Group, [facility] RIGHT LOWER QUADRANT PAIN RIGH T LOWER QUADRANT PAIN Active [facility] Diagnosis Active 2017-06-13 09:59:00 [facility] UNIL INGUINAL HERNIA, W/O OBST OR GANGR, UNIL INGUINAL HERNIA, W/O OBST OR GANGR, Active [facility] Diagnosis Active 2017-06-27 05:13:00 [facility] Allergies, Adverse Reactions, Alerts Allergy Name Allergy Type Status Severity Reaction(s) Onset Date Inacti ve Date Treating Clinician Comments Source No Known Medication Allergies No Known Medication Allergies Active [facility] Social History Social Habit Start Date Stop Date Quantity Comments Source Social History 2017-06-10 18:43:42 2017-06-10 18:43:42 [facility] Medications Ordered Medication Name Filled Medication Name Start Date Stop Da te Current Medication? Ordering Clinician Indication Dosage Frequency Signature (SIG) Comments Components Source Ciprofloxacin 500 MG Oral Tablet [Cipro] 2019-12-13 15:52:00 Yes 500 mg = 1 tab, PO, Q12H, start taking on 12/17/2019, X 5 day, # 10 tab, 0 Refill(s), [facility]acy: [facility] #[id number] Medical [facility] Ciprofloxacin 500 MG Oral Tablet [Cipro] 2019-10-06 00:06:00 Yes 500 mg = 1 tab, PO, Q12H, begin three days prior to procedure, X 5 day, # 10 tab, 1 Refill(s), Pharmacy: [facility] #[id number] Medical Group Amikacin 2019-06-08 22:40:00 Yes 500 mg, Route: IM, Drug form: INJ, ONCE, Dosing Weight 97.727, kg, Start date: 06/08/19 17:40:00 CDT, Stop date: 06/08/19 17:40:00 CDT Medical Group Tamsulosin hydrochloride 0.4 MG Oral Capsule [Flomax] 2019-04-21 16:36:00 Yes 0.8 mg = 2 cap, PO, Daily, # 60 cap, 11 Refill(s), Pharmacy: [facility] [id number] [place] [address] ou Ciprofloxacin 500 MG Oral Tablet [Cipro] 2019-04-21 16:36:00 Yes 500 mg = 1 tab, PO, Q12H, begin three days prior to procedure, X 5 day, # 10 tab, 1 Refill(s), Pharmacy: [facility] [address] [place] [address] Lisinopril 2019-04-21 16:16:00 Yes PO, Daily , 0 Refill(s) Medical Group Tamsulosin hydrochloride 0.4 MG Oral Capsule [Flomax] 2018-10-07 18:01:00 Yes 0.4 mg = 1 cap, PO, Daily, # 90 cap, 5 Refill(s), Pharmacy: [facility] [address] [place] [address] ou silodosin 8 MG Oral Capsule [Rapaflo] 2018-09-24 19:23:00 Y es 8 mg = 1 cap, PO, # 30 cap, 12 Refill(s) [facility] dical Group Sulfamethoxazole 800 MG / Trimethoprim 160 MG Oral Tablet [B actrim] 2018-09-24 19:23:00 Yes 1 tab, PO, BID, # 28 tab, 0 Refill(s) Medical Group Ciprofloxacin 500 MG Oral Tablet [Cipro] 2018-09-24 19:23:00 Yes 500 mg = 1 tab, PO, # 10 tab, 0 Refill(s) [facility] Oxycodone Hydrochloride 5 MG Oral Tablet 2017-06-27 14:53:00 No 10 mg, Route: PO, Drug form: TAB, ONCE, Dosing Weight 96.364, kg, PRN Pain Score 7- 10, Start date: 06/27/17 9:53:00 CDT [facility] Ondansetron 2017-06-27 14:11:00 No 4 mg, Route: IVP, ONCE, Dosing Weight 96.364, kg, PRN Nausea & Vomiting, Start date: 06/27/17 9:11:00 CDT [facility] Flumazenil 2017-06-27 14:11:00 No 0.2 mg, Route: IVP, PRN, Dosing Weight 96.364, kg, PRN Benzodiazepine Reversal, Initial dose, Start date: 06/27/17 9:11:00 CDT, Duration: 30 day, Stop date: 07/27/17 9:10:00 CDT [facility] Hydromorphone 2017-06-27 14:11:00 No 0.5 mg, Route: IVP, Q5Min, Dosing Weight 96.364, kg, PRN Pain Score 7-10, Start date: 06/27/17 9:11:00 CDT, Duration: 4 doses or times, Stop date: Limited # of times [facility] Naloxone 2017-06-27 14:11:00 No 0.4 mg, Route: IVP, Q2MIN, Dosing Weight 96.364, kg, PRN Narcotic Reversal, Start date: 06/27/17 9:11:00 CDT, Duration: 8 doses or times, Stop date: Limited # of times [facility] Morphine 2017-06-27 14:11:00 No 2 mg, Route: IVP, Q5Min, Dosing Weight 96.364, kg, PRN Pain Score 4-6, Start date: 06/27/17 9:11:00 CDT, Duration: 5 doses or times, Stop date: Limited # of times [facility] Hydralazine 2017-06-27 14:11:00 No 10 mg, Route: IVP, Q20Min, Dosing Weight 96.364, kg, PRN Elevated BP, Start date: 06/27/17 9:11:00 CDT, Duration: 2 doses or times, Stop date: Limited # of times [facility] Labetalol 2017-06-27 14:11:00 No 10 mg, Route: IVP, Q5Min, Dosing Weight 96.364, kg, PRN Elevated BP, Start date: 06/27/17 9:11:00 CDT, Duration: 5 doses or times, Stop date: Limited # of times [facility] tramadol hydrochloride 50 MG Oral Tablet [Ultram] 2017-06-27 14:07:00 Yes 50 mg = 1 tab, PO, Q4H, PRN for pain, X 5 day, # 20 tab, 0 Refill(s) [facility] ondansetron (ANES) 2017-06-27 14:03:00 No Route: IV, Drug form: INJ, ONCE, Stop date: 06/27/17 9:03:00 CDT [facility] ePHEDrine (ANES) 2017-06-27 13:44:00 No Route: IV, Drug form: INJ, ONCE, Stop date: 06/27/17 8:44:00 CDT [facility] famotidine (ANES) 2017-06-27 13:44:00 No Route: IV, Drug form: INJ, ONCE, Stop date: 06/27/17 8:44:00 CDT [facility] dexamethasone (ANES) 2017-06-27 13:44:00 No Route: IV, Drug form: INJ, ONCE, Stop date: 06/27/17 8:44:00 CDT [facility] fentaNYL (ANES) 2017-06-27 13:39:00 No Route: IV, Drug form: INJ, ONCE, Stop date: 06/27/17 8:39:00 CDT [facility] lidocaine (ANES) 2017-06-27 13:39:00 No Route: IV, Drug form: INJ, ONCE, Stop date: 06/27/17 8:39:00 CDT [facility] propofol (ANES) 2017-06-27 13:39:00 No Route: IV, Drug form: INJ, ONCE, Stop date: 06/27/17 8:39:00 CDT [facility] acetaminophen (ANES) (ANES) 2017-06-27 13:24:00 No Route: IV, Drug form: INJ, Start date: 06/27/17 8:24:00 CDT, Stop date: 06/27/17 9:24:00 CDT [facility] ceFAZolin (ANES) (ANES) 2017-06-27 12:54:00 No Route: IV, Drug form: INJ, Start date: 06/27/17 7:54:00 CDT, Stop date: 06/27/17 8:54:00 CDT [facility] LR 1000 mL INJ (ANES) 2017-06-27 12:43:00 No Route: IV, Total Volume: 1,000, Start date: 06/27/17 7:43:00 CDT, Stop date: 06/27/17 8:43:00 CDT [facility] Calcium Chloride 0.0014 MEQ/ML / Potassi um Chloride 0.004 MEQ/ML / Sodium Chloride 0.103 MEQ/ML / Sodium Lactate 0.028 MEQ/ML Injectable Solution 2017-06-27 11:57:00 No 1,000 mL, Rate: 25 ml/hr, Infuse over: 40 hr, Route: IV, Dosing Weight 96.364 kg, Total Volume: 1,000, Start date: 06/27/17 6:57:00 CDT, Duration: 30 day, Stop date: 07/27/17 6:56:00 CDT [facility] Cefazolin 2017-06-24 15:40:00 Yes Notes: Fahad e as: Ancbrad [facility] Omnipaque 300 2017-06-13 16:47:00 No Notes: (Same as:Omnipaque 300). WASTE: F/P - Black; E - [employer] [facility] Vital Signs Vital Name Observation Time Observation Value Comments Source Height 2019-10-05 23:17:00 165.1 cm Medic al Group Weight 2019-10-05 23:17:00 Medic al Group BMI Calculated 2019-10-05 23:17:00 Med ical Group Height 2019-08-10 19:56:00 165.1 cm Medic al Group Weight 2019-08-10 19:56:00 Medic al Group BMI Calculated 2019-08-10 19:56:00 Med ical Group Height 2019-06-30 15:48:00 165.1 cm Medic al Group Weight 2019-06-30 15:48:00 Medic al Group BMI Calculated 2019-06-30 15:48:00 Med ical Group Weight 2019-04-21 15:57:00 Medic al Group Height 2019-04-21 15:57:00 165.1 cm Medic al Group BMI Calculated 2019-04-21 15:57:00 Med ical Group Height 2018-10-07 15:56:00 165.1 cm Medic al Group BMI Calculated 2018-10-07 15:56:00 Med ical Group Weight 2018-10-07 15:56:00 Medic al Group Heart Rate 2018-10-07 15:56:00 Medic al Group Systolic (mm Hg) 2018-10-07 15:56:00 M edical Group Diastolic (mm Hg) 2018-10-07 15:56:00 Medical Group Systolic (mm Hg) 2017-06-27 15:39:00 [facility] Diastolic (mm Hg) 2017-06-27 15:39:00 [facility] Systolic (mm Hg) 2017-06-27 15:00:00 [facility] Diastolic (mm Hg) 2017-06-27 15:00:00 [facility] Systolic (mm Hg) 2017-06-27 14:45:00 [facility] Diastolic (mm Hg) 2017-06-27 14:45:00 [facility] Resp[facility] Rate 2017-06-27 14:45:00 [facility] Respitory Rate 2017-06-27 14:30:00 [facility] Respitory Rate 2017-06-27 14:15:00 [facility] Heart Rate 2017-06-24 15:42:00 [facility] Temperature Oral (F) 2017-06-24 15:42:00 97.5 F [facility] Weight 2017-06-24 15:40:00 [facility] BMI Calculated 2017-06-24 15:40:00 [facility] Height 2017-06-24 15:40:00 165.1 cm [facility] Procedures Procedure Date / Time Performed Performing Clinician [facility] Insertion of temporary indwelling bladder catheter; si mple (eg, Márquez) 2020-02-28 16:15:00 Medical Group Measurement of post-voiding residual uri ne and/or bladder capacity by ultrasound, non-imaging 2020 14:09:00 Medical Group Complex uroflowmetry (eg, calibrated electronic equipment) 2 14:09:00 Medical Group Bladder irrigation, simple, lavage and/or instillation 2020-01-09 0 14:09:00 Medical Group INSERT TEMP BLADDER CATH 2019-12-31 00:00:00 [facility] Biopsy, prostate; needle or punch, single or multiple, any approach 2019-06-08 22:50:00 Medical Group Needle biopsy of prostate 2017-10-15 06:00:00 Medical Group Repair initial inguinal hernia, age 5 years or older; reducible 2017-06-27 14:10:00 [facility] Open repair of inguinal hernia 2017-06-27 05:00:00 Medical Group Complex uroflowmetry 2012-09-15 06:00:00 [facility] , [facility] Tonsillectomy Medical [facility] , [facility] Encounters Start Date/Time End Date/Time En[facility] ID Source 2020-05-31 08:30:00 2020-05-31 08:30:00 Outpatient MHIEA LT [facility] [id number] [facility] 2020-04-12 09:15:00 2020-04-12 09:15:00 Outpatient MHIEA LT [facility] [id number] [facility] 2020-04-12 09:15:00 2020-04-12 09:15:00 Outpatient MHIEA LT [facility] [id number] [facility] 2020-03-29 08:50:00 2020-03-29 08:50:00 Outpatient MHIEA LT [facility] [id number] [facility] 2020-03-27 15:45:00 2020-03-27 15:45:00 Outpatient MHIEA LT [facility] [id number] [facility] 2020-03-20 09:15:00 2020-03-20 09:15:00 Outpatient MHIEA LT [facility] [id number] [facility] 2020-03-06 13:45:00 2020-03-06 13:45:00 Outpatient MHIEA LT [facility] [id number] [facility] 2020-02-28 15:30:00 2020-02-29 04:59:59 Outpatient [facility]IEALT [facility] [address] [id number] Medical Group 2020-02-28 10:30:00 2020-02-28 23:59:59 Outpatient Jax Pina [facility] [id number] 2020-02-28 10:30:00 2020-02-28 10:30:00 Outpatient MHIEA LT [facility] [id number] [facility] 2020-02-15 18:30:00 2020-02-15 18:30:00 Ambulatory Pre-Reg [facility] [address] [id number] Medical [facility] 2020-02-15 13:30:00 2020-02-15 13:30:00 Outpatient Jax Pina [facility] [id number] 2020-02-09 10:40:00 2020-02-09 10:40:00 Outpatient MHIEA LT [facility] [id number] [facility] 2020-02-04 19:30:00 2020-02-05 04:59:59 Outpatient [facility] Urology [facility] [id number] [facility] 2020-02-04 14:30:00 2020-02-04 23:59:59 Outpatient VISIT, AK D_ASST UAHT [facility] [id number] 2020-02-04 14:30:00 2020-02-04 14:30:00 Outpatient MHIEA LT [facility] [id number] [facility] 2020-01-25 04:22:00 2020-01-25 05:15:00 Departed Emergency Room [facility] [id number] [facility] 2020 13:45:00 2020-01-19 04:59:59 Outpatient [facility] [id number] Medical Group 2020 08:45:00 2020 23:59:59 Outpatient Jax Pina [facility] [id number] 2020 08:45:00 2020 08:45:00 Outpatient MHIEA LT [facility] [id number] [facility] 2020-01-17 18:40:00 2020 04:59:59 Outpatient [facility] U[facility] [id number] Medical [facility] 2020-01-17 13:40:00 2020-01-17 23:59:59 Outpatient Simeon Padgett [facility] [id number] 2020-01-17 13:40:00 2020-01-17 13:40:00 Outpatient MHIEA LT [facility] [id number] [facility] 2019-12-31 06:13:00 2019-12-31 07:28:00 Departed Emergency Room [id number] [facility] 2019-12-27 14:30:00 2019-12-28 05:59:59 Outpatient [facility] [address] [id number] Medical Group 2019-12-27 08:30:00 2019-12-27 23:59:59 Outpatient Jax Pina [facility] [id number] 2019-12-27 08:30:00 2019-12-27 08:30:00 Outpatient MHIEA LT [facility] [id number] [facility] 2019-12-22 07:41:00 2019-12-22 08:28:00 Departed Emergency Room [facility] [id number] [facility] Patients [facility] 2019-12-13 16:45:00 2019-12-14 05:59:59 Outpatient [facility] [address] [id number] Medical Group 2019-12-13 10:45:00 2019-12-13 23:59:59 Outpatient Jax Pina [facility] [id number] 2019-12-13 17:00:00 2019-12-13 17:00:00 Ambulatory Pre-Reg [facility] [address] [id number] Medical Group 2019-12-13 11:00:00 2019-12-13 11:00:00 Outpatient VISIT, NU RSE UAHT [facility] [id number] 2019-12-13 10:45:00 2019-12-13 10:45:00 Outpatient MHIEA LT [facility] [id number] [facility] 2019-10-05 22:30:00 2019-10-06 05:59:59 Outpatient MHIEALT [facility] [address] [id number] Medical Group 2019-10-05 16:30:00 2019-10-05 23:59:59 Outpatient Jax Pina [facility] [id number] 2019-10-05 16:30:00 2019-10-05 16:30:00 Outpatient MHIEA LT [facility] [id number] [facility] 2019-09-08 15:40:00 2019-09-08 15:40:00 Ambulatory Pre-Reg MHIEALT [facility] [address] [id number] Medical Group 2019-09-08 10:40:00 2019-09-08 10:40:00 Outpatient MHIEA LT [facility] [id number] [facility] 2019-09-08 10:40:00 2019-09-08 10:40:00 Outpatient Jax Pina [facility] [id number] 2019-08-10 19:40:00 2019-08-11 04:59:59 Outpatient MHIEALT [facility] [address] [id number] Medical Group 2019-08-10 14:40:00 2019-08-10 23:59:59 Outpatient Jax Pina [facility] [id number] 2019-08-10 14:40:00 2019-08-10 14:40:00 Outpatient MHIEA LT [facility] [id number] [facility] 2019-06-30 16:00:00 2019-07-01 04:59:59 Outpatient MHIEALT [facility] [address] [id number] Medical Group 2019-06-30 11:00:00 2019-06-30 23:59:59 Outpatient Jax Pina [facility] [id number] 2019-06-30 11:00:00 2019-06-30 11:00:00 Outpatient MHIEA LT [facility] [id number] [facility] 2019-06-08 20:40:00 2019-06-09 04:59:59 Outpatient [facility]IEALT [facility] [address] [id number] Medical Group 2019-06-08 15:40:00 2019-06-08 23:59:59 Outpatient Jax Pina [facility] [id number] 2019-06-08 21:30:00 2019-06-08 21:30:00 Ambulatory Pre-Reg MH[facility] [address] [id number] Medical Group 2019-06-08 16:30:00 2019-06-08 16:30:00 Outpatient MHIEA LT [facility] [id number] [facility] 2019-06-08 16:30:00 2019-06-08 16:30:00 Outpatient Jax Pina [facility] [id number] 2019-06-08 15:40:00 2019-06-08 15:40:00 Outpatient MHIEA LT [facility] [id number] [facility] 2019-04-22 13:45:00 2019-04-23 04:59:59 Outpatient [facility] [address] [id number] Medical Group 2019-04-22 08:45:00 2019-04-22 23:59:59 Outpatient Jax Pina [facility] [id number] 2019-04-22 08:45:00 2019-04-22 08:45:00 Outpatient MHIEA LT [facility] [id number] [facility] 2019-04-21 15:35:00 2019-04-22 04:59:59 Outpatient [facility] [address] [id number] Medical Group 2019-04-21 10:35:00 2019-04-21 23:59:59 Outpatient Jax Pina [facility] [id number] 2019-04-21 10:35:00 2019-04-21 10:35:00 Outpatient MHIEA LT [facility] [id number] [facility] 2019-04-15 15:00:00 2019-04-16 04:59:59 Outpatient [facility] [address] [id number] Medical Group 2019-04-15 10:00:00 2019-04-15 23:59:59 Outpatient [facility] [id number] 2019-04-15 10:00:00 2019-04-15 10:00:00 Outpatient MHIEA LT [facility] [id number] [facility] 2019-04-14 20:30:00 2019-04-14 21:21:00 Departed Emergency Room [facility] [id number] [facility] 2018-12-23 10:30:00 2018-12-23 10:30:00 Outpatient MHIEA LT [facility] [id number] [facility] 2018-10-07 15:30:00 2018-10-08 05:59:59 Outpatient MHIEALT [facility] [address] [id number] Medical [facility] 2018-10-07 09:30:00 2018-10-07 23:59:59 Outpatient Jax Pina [facility] [id number] 2018-10-07 09:30:00 2018-10-07 09:30:00 Outpatient MHIEA LT [facility] [id number] [facility] 2018-09-24 15:14:00 2018-09-26 05:59:59 Outside Medical Records [facility] [address] [id number] Medical [facility] 2018-09-24 09:14:00 2018-09-25 23:59:59 Outpatient MG [facility] [id number] 2018-09-24 14:45:00 2018-09-25 05:59:59 Outpatient MHIEALT [facility] [address] [id number] Medical [facility] 2018-09-24 08:45:00 2018-09-24 23:59:59 Outpatient MG [facility] [id number] 2018-09-24 08:45:00 2018-09-24 08:45:00 Outpatient MHIEA LT [facility] [id number] [facility] 2018-09-18 23:33:00 2018-09-19 00:39:00 Departed Emergency Room [facility] [id number] [facility] 2017-07-15 15:15:00 2017-07-15 15:15:00 Outpatient MHIEA LT [facility] [id number] [facility] 2017-06-27 10:13:00 2017-06-27 20:42:00 Day Surgery MHIEALT [facility] [id number] [facility] 2017-06-27 05:13:00 2017-06-27 15:42:00 [facility]patient [facility] [id number] 2017-06-27 07:30:00 2017-06-27 07:30:00 Outpatient MHIEA LT [facility] [id number] [facility] 2017-06-13 14:50:00 2017-06-14 04:59:00 Outpatient MHIEALT [facility] [id number] [facility] 2017-06-13 09:50:00 2017-06-13 23:59:00 Outpatient Misbah Partida [facility] [id number] 2017-06-10 13:30:00 2017-06-10 13:30:00 Outpatient MHIEA LT [facility] [id number] [facility] Results Test Description Test Time Test Comments Results Result Comments Source HEMATOLOGY 2017-06-24 16:04:00 14.6 [facility] HEMATOLOGY 2017-06-24 16:04:00 43.4 [facility] CHEM PANEL 2017-06-13 16:22:00 68 [facility] CHEM PANEL 2017-06-13 16:22:00 1.1 [facility]
--- OUTSIDE RECORDS SUMMARY | 2020-03-31 06:30 | XMS REPORT | Summary of Care ---
Author Author [facility] m[facility]inley Organization [facility] Address Unknown Phone Unavailable Encounter MIGNON Lazar(FIN) [id number] Date(s): 09/24/18 - 09/25/18 [facility] [place] [address] [place] [address]- Vital Signs No data available for this [...]
--- OUTSIDE RECORDS SUMMARY | 2020-03-31 06:30 | XMS REPORT | Summary of Care ---
Author Author [facility] ton Organization [facility] ton Address Unknown Phone Unavailable Encounter MIGNON Lazar(FIN) [id number] Date(s): 09/08/19 - 09/08/19 [facility] [place] [id number] [place] [address]- Attending Physician: Jax Pina MD Vital Signs [...] No; Stopped at age: 32; entered on: 08/10/19 Assessment and Plan No data available for this section
--- OUTSIDE RECORDS SUMMARY | 2020-03-31 06:30 | XMS REPORT | Summary of Care ---
Author Author [facility] ton Organization [facility] ton Address Unknown Phone Unavailable Encounter MIGNON Lazar(RITESH) [id number] Date(s): 01/18/20 - 01/18/20 [facility] [place] [id number] [place] [phone]- Discharge Disposition: Home or Self Care Attending [...] Procedure Date Related Diagnosis Body Site Status Bladder irrigation, simple, lavage and/or 01/18/20 Completed instillation Complex uroflowmetry (eg, calibrated 01/18/20 C ompleted electronic equipment) Measurement of post-voiding residual urine 01/18/20 Completed and/or bladder capacity by ultrasound, non-imaging [...]
--- OUTSIDE RECORDS SUMMARY | 2020-03-31 06:30 | XMS REPORT | Summary of Care ---
Author Author [facility] Organization [facility] Address Unknown Phone Unavailable Encounter HQ Radhantr_alitamiko(FIN) [id number] Date(s): 02/04/20 - 02/04/20 [facility] [place] [address] [place] [address]- Discharge Disposition: Home or Self Care Attending Physician: VISIT, MED_ASST UAHT Vital Signs No data available for this [...]
--- OUTSIDE RECORDS SUMMARY | 2020-03-31 06:30 | XMS REPORT | Summary of Care ---
Author Author [facility] ton Organization [facility] Address Unknown Phone Unavailable Encounter MIGNON Lazar(RITESH) [id number] Date(s): 10/05/19 - 10/05/19 [facility] [place] [address] [place] [phone] Discharge Disposition: Home or Self Care Attending Physician: Jax Pina MD Vital Signs Most recent to 1 oldest [Reference Range]: Height 165.1 cm (10/05/19 5:17 PM) Weight 97.727 kg (10/05/19 5:17 PM) Body Mass Index 35.85 m2 (10/05/19 5:17 PM) Problem List Condition Effective Dates Status Health Status Informan t Benign prostatic Resolved hyperplasia with lower urinary tract symptoms(Confirmed) Diaphragmatic Resolved hernia(Confirmed) High Resolved cholesterol(Confirme d) Hypercholesterolemia Active (Confirmed) High blood Resolved pressure(Confirmed) Hypertension(Confirm Active ed) 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
--- OUTSIDE RECORDS SUMMARY | 2020-03-31 06:30 | XMS REPORT | Summary of Care ---
Author Author [facility] ton Organization [facility] ton Address Unknown Phone Unavailable Encounter MIGNON Lazar(FIN) [id number] Date(s): 04/22/19 - 04/22/19 [facility] [place] [address] [place] [phone] Discharge Disposition: Home or Self Care Attending [...] No; Stopped at age: 32; entered on: 04/21/19 Assessment and Plan No data available for this section
--- OUTSIDE RECORDS SUMMARY | 2020-03-31 06:30 | XMS REPORT | Summary of Care ---
Author Author [facility] [place] Organization [facility] Address Unknown Phone Unavailable Encounter MIGNON Lazar(FIN) [id number] Date(s): 04/15/19 - 04/15/19 [facility] [place] [address] [place] [phone] Discharge Disposition: Home or Self Care Vital [...]
--- OUTSIDE RECORDS SUMMARY | 2020-03-31 06:30 | XMS REPORT | Summary of Care ---
Author Author [facility] [place] Organization [facility] Address Unknown Phone Unavailable Encounter MIGNON Lazar(RITESH) [id number] Date(s): 04/21/19 - 04/21/19 [facility] [place] [address] [phone] Discharge Disposition: Home or Self Care Attending Physician: Jax Pina MD Vital Signs Most recent to 1 oldest [Reference Range]: Height 165.1 cm (04/21/19 10:57 AM) Weight 97.727 kg (04/21/19 10:57 AM) Body Mass Index 35.85 m2 (04/21/19 10:57 AM) Problem List Condition Effective Dates Status Health [...] # 10 tab , 1 Refill(s), Pharmacy: [facility] [id number] Start Date: 04/21/19 Stop Date: 05/01/19 Status: Ordered Flomax 0.4 mg oral capsule 0.8 mg = 2 cap, PO, Daily, # 60 cap, 11 Refill(s), Pharmacy: [facility] [id number] Start Date: 04/21/19 Stop Date: 04/15/20 Status: Ordered lisinopril PO, Daily, 0 Refill(s) Start Date: 04/21/19 Status: Ordered Results No data available for this section Immunizations No data available for this section Procedures Procedure Date Related Diagnosis Body Site Status Complex uroflowmetry (eg, calibrated 04/21/19 C ompleted electronic equipment) Measurement of post-voiding residual urine 04/21/19 Completed and/or bladder capacity by ultrasound, non-imaging [...]
--- OUTSIDE RECORDS SUMMARY | 2020-03-31 06:30 | XMS REPORT | Summary of Care ---
Author Author [facility] [place] Organization [facility] Address Unknown Phone Unavailable Encounter MIGNON Lazar(RITESH) [id number] Date(s): 06/30/19 - 06/30/19 [facility] [place] [address] [place] [phone] Discharge Disposition: Home or Self Care Attending Physician: Jax Pina MD Vital Signs Most recent to 1 oldest [Reference Range]: Height 165.1 cm (06/30/19 10:48 AM) Weight 97.727 kg (06/30/19 10:48 AM) Body Mass Index 35.85 m2 (06/30/19 10:48 AM) Problem List Condition Effective Dates Status [...] No; Stopped at age: 32; entered on: 06/30/19 Assessment and Plan No data available for this section
--- OUTSIDE RECORDS SUMMARY | 2020-03-31 06:30 | XMS REPORT | Summary of Care ---
Author Author [facility] Organization [facility] Address Unknown Phone Unavailable Encounter MIGNON Lazar(FIN) [id number] Date(s): 02/15/20 - 02/15/20 [facility] [place] [address] [place] [phone]- Attending Physician: Jax Pina MD Vital Signs [...]
--- OUTSIDE RECORDS SUMMARY | 2020-03-31 06:30 | XMS REPORT | Summary of Care ---
Author Author [facility] Organization [facility] Address Unknown Phone Unavailable Encounter MIGNON Lazar(FIN) [id number] Date(s): 12/13/19 - 12/13/19 [facility] [place] [phone] [place] [phone]- Attending Physician: VISIT, NURSE UAHT Vital Signs No data available for [...]
--- OUTSIDE RECORDS SUMMARY | 2020-03-31 06:30 | XMS REPORT | Summary of Care ---
Author Author [facility] Organization [facility] Address Unknown Phone Unavailable Encounter MIGNON Lazar(RITESH) [id number] Date(s): 12/13/19 - 12/13/19 [facility] [place] [address] [place] [phone]- Discharge Disposition: Home or Self Care Attending [...] X 5 day, # 10 tab, 0 Refil l(s), Pharmacy: [facility] #[id number] Start Date: 12/13/19 Stop Date: 12/18/19 Status: Ordered Results No data available for [...]
--- OUTSIDE RECORDS SUMMARY | 2020-03-31 06:30 | XMS REPORT | Summary of Care ---
Author Author [facility] [place] Organization [facility] [place] Address Unknown Phone Unavailable Encounter MIGNON Lazar(RITESH) [id number] Date(s): 08/10/19 - 08/10/19 [facility] [place] [address] [place] [phone]- Discharge Disposition: Home or Self Care Attending Physician: Jax Pina MD Vital Signs Most recent to 1 oldest [Reference Range]: Height 165.1 cm (08/10/19 2:56 PM) Weight 97.727 kg (08/10/19 2:56 PM) Body Mass Index 35.85 m2 (08/10/19 2:56 PM) Problem List Condition Effective Dates Status [...]
--- OUTSIDE RECORDS SUMMARY | 2020-03-31 06:30 | XMS REPORT | Summary of Care ---
Author Author [facility] ton Organization [facility] ton Address Unknown Phone Unavailable Encounter MIGNON Lazar(FIN) [id number] Date(s): 02/28/20 - 02/28/20 [facility] [place] [address] [place] [phone] Discharge Disposition: Home or Self Care Attending [...] Procedure Date Related Diagnosis Body Site Status Insertion of temporary indwelling bladder 02/28/20 Completed catheter; simple (eg, Márquez) Needle biopsy of prostate 10/15/17 Completed Open [...]
--- NOTE | 2020-03-31 07:03 | Emergency Department Note ---
History of Present Illnes History of Present Illness Chief Complaint: Genitourinary History of Present Illness This is a 75 year old male with cc of urinary retention. He is unable to urinate He is knwn to have enlarged prostate, and scheduled for surgery, now requesting a lopes.. Historian: Patient Onset (how long ago): day(s) (1) Location: supraubis Quality: burning Radiation: non-radiation Severity: moderate Onset quality: gradual Duration (how long): day(s) (1) Timing of current episode: constant Progression: worsening Chronicity: new Context: recent illness, recent surgery, recent immobilization, recent travel, trauma/injury, new medications, hx of DVT/PE, non-compliance w/ medications, other Relieving factors: none Exacerbating factors: none Associated symptoms: denies other symptoms Treatments prior to arrival: none Past Medical/Family History Physician Review I have reviewed the patient's past medical and family history. Any updates have been documented here. Past Medical History Past Medical History: Hypertension Other Medical History: BPH Past Surgical History: None Other Last Tetanus: UTD Review of Systems Review of Systems Constitutional: no symptoms EENTM: no symptoms Cardiovascular: no symptoms Respiratory: no symptoms Gastrointestinal: no symptoms Genitourinary: no symptoms, pain Musculoskeletal: no symptoms Neurological: no symptoms Psychological: no symptoms Endocrine: no symptoms Hematological/Lymphatic: no symptoms Review of other systems All other systems reviewed and negative. Physical Exam Related Data Allergies: Coded Allergies: No Known Allergies (Unverified , 09/19/18) Vital signs reviewed: Yes Physical Exam CONSTITUTIONAL Constitutional: well-developed, well-nourished HENT HENT: normocephalic, atraumatic, oropharynx clear/moist, nose normal HENT L/R: left ext ear normal, right ext ear normal EYES Eyes: PERRL, conjunctivae normal NECK Neck: ROM normal PULMONARY Pulmonary: effort normal, breath sounds normal CARDIOVASCULAR Cardiovascular: regular rhythm, heart sounds normal, capillary refill normal, normal rate GASTROINTESTINAL Abdominal: soft, nontender, bowel sounds normal GENITOURINARY Genitourinary: exam deferred SKIN Skin: warm, dry MUSCULOSKELETAL Musculoskeletal: ROM normal NEUROLOGICAL Neurological: alert, oriented x 3, no gross motor or sensory deficits PSYCHOLOGICAL Psychological: mood/affect normal, judgement normal Results Laboratory Lab results reviewed: Yes Critical Care Time Subsequent provider I assumed direction of critical care for this patient from another provider of my specialty. Assessment & Plan Reassessment Reassessment better Assessment & Plan Final Impression: (1) Acute urinary retention Assessment & Plan lopes/macrobid Depart Disposition: HOME, SELF-CARE GERMAN QUEEN MD March 31, 2020 07:03
== END 2020-03-31 07:28 | disposition home or self-care (01) ==
LOC: FSED 06:26
DX: R33.9 Retention of urine, unspecified (principal); I10 Essential (primary) hypertension
CPT/HCPCS: 51700; 81003; 99283